=== PATIENT | female | born 1990 | race Caucasian/White ===

== ENCOUNTER 2019-10-20 09:28 | Emergency (ER) | payer MEDICAID ==
[~2019-10-20] VITALS: Ht 167.6 cm; Wt 61.0 kg
[2019-10-20 10:20] VITALS: BP 98/52
[2019-10-20] MEDS ORDERED: IBUPROFEN 600MG TABLET PO STA (10:29)
[2019-10-20] MEDS ORDERED: ACETAMINOPHEN 325MG TABLET PO STA (10:29)
== END 2019-10-20 12:05 | disposition home or self-care (01) ==
LOC: ER 09:28
DX: B34.9 Viral infection, unspecified (principal); R05 Cough; R56.9 Unspecified convulsions; R62.50 Unspecified lack of expected normal physiological development in childhood
CPT/HCPCS: 71045; 99283

== ENCOUNTER 2020-02-06 11:11 | Emergency (ER) | payer MEDICAID, OTHER ==
[~2020-02-06] VITALS: Ht 144.8 cm; Wt 60.0 kg
[2020-02-06 12:41] LABS: CLARITY URINE CLEAR (CLEAR); COLOR URINE DARK YELLOW (YELLOW); KETONES URINE TRACE (NEGATIVE); LEUKOCYTE ESTERASE URINE 1+ (NEGATIVE); NITRITE URINE NEGATIVE (NEGATIVE); OCCULT BLOOD URINE NEGATIVE (NEGATIVE); PH URINE 5.5 (4.5-8.0); PROTEIN URINE NEGATIVE (NEGATIVE); SPECIFIC GRAVITY URINE 1.025 (1.005-1.030)
[2020-02-06 13:21] LABS: BASOPHILS % 0.6 % (0.0-2.0); EOSINOPHILS % 0.9 % (0.0-5.0); HEMATOCRIT. 38.9 % (36.0-48.0); HEMOGLOBIN. 13.6 g/dL (12.0-16.0); LYMPHOCYTES % 32.2 % (20.0-50.0); MEAN CORPUSCULAR HEMOGLOBIN 32.1 pg (28.0-32.0); MEAN CORPUSCULAR VOLUME 91.8 fL (81.0-99.0); MEAN PLATELET VOLUME 11.5 fl (7.4-10.4); MONOCYTES % 6.7 % (2.0-8.0); NEUTROPHILS % 59.6 % (40.0-76.0); PLATELET 140 x1000/uL (130-400); RED BLOOD CELL COUNT 4.24 mill/uL (4.2-5.4); RED CELL DISTRIBUTION WIDTH 12.6 % (11.6-14.6)
[2020-02-06 13:29] LABS: CHLORIDE 105 mEq/L (98-107)
[2020-02-06 13:34] LABS: PROTHROMBIN TIME 11.3 sec (9.6-11.0)
[2020-02-06 13:40] VITALS: BP 118/74
[2020-02-06 13:44] LABS: HCG SCREEN NEGATIVE
== END 2020-02-06 14:09 | disposition home or self-care (01) ==
LOC: ER 11:11
DX: N39.0 Urinary tract infection, site not specified (principal); G40.909 Epilepsy, unspecified, not intractable, without status epilepticus; H54.7 Unspecified visual loss; F79 Unspecified intellectual disabilities
CPT/HCPCS: 36415; 71045; 80053; 81003; 84703; 85025; 99284

== ENCOUNTER 2022-08-06 10:03 | Emergency (ER) | payer OTHER ==
[~2022-08-06] VITALS: Ht 165.1 cm; Wt 80.0 kg
[2022-08-06] MEDS ORDERED: LIDOCAINE HCL 1% 20ML VIAL (Pyxis) INJ INFIL ONE ×3 (10:30→10:45)
[2022-08-06] MEDS ORDERED: MIDAZOLAM HCL 2 MG/2 ML VIAL IM ONE (11:15)
[2022-08-06 12:04] VITALS: BP 107/68
[2022-08-06] MEDS ORDERED: AMOX1TAB16 PO (12:21)
== END 2022-08-06 12:59 | disposition home or self-care (01) ==
LOC: ER 10:03
DX: S01.551A Open bite of lip, initial encounter (principal); R56.9 Unspecified convulsions; F84.0 Autistic disorder; Q21.10 Atrial septal defect, unspecified; Y04.1XXA Assault by human bite, initial encounter; Y93.89 Activity, other specified; Y92.9 Unspecified place or not applicable
CPT/HCPCS: 12011; 90471; 99283; J2250; J3490; Z7610

== ENCOUNTER 2024-12-09 13:57 | Emergency (ER) | payer MEDICAID, OTHER ==
[~2024-12-09] VITALS: Ht 160 cm; Wt 81.0 kg
[~2024-12-09 13:57] MED LIST: AMOX1TAB16 PO
[2024-12-09 14:12] VITALS: O2SAT 96
[2024-12-09] MEDS: TETANUS, DIPHTHERIA, PERTUSSIS VAC/PF 0.5ML (>10YR OLD) IM ONE (15:33)
[2024-12-09] MEDS: ACETAMINOPHEN 325MG TABLET PO ONE (15:34)
[2024-12-09 17:40] VITALS: BP 127/82; PULSE 68; RESP 18; TEMP 37.1; O2SAT 98
== END 2024-12-09 17:43 | disposition home or self-care (01) ==
LOC: ER 13:57
DX: T14.8XXA Other injury of unspecified body region, initial encounter (principal); E78.00 Pure hypercholesterolemia, unspecified; W22.8XXA Striking against or struck by other objects, initial encounter; Z98.890 Other specified postprocedural states; Y93.89 Activity, other specified; Y92.89 Other specified places as the place of occurrence of the external cause; Y99.8 Other external cause status
CPT/HCPCS: 70450; 90715; 12002; 90471; 99285; Z7610